=== PATIENT | male | born 1950 | race Caucasian/White ===

== ENCOUNTER 2024-01-19 07:37 | Outpatient (CLI) | payer MEDICARE, OTHER | END 2024-01-19 23:59 | disposition home or self-care (01) | LOC: MRI02 07:37 | PROVIDERS: ATTEND Family Medicine | DX: M47.817 Spondylosis without myelopathy or radiculopathy, lumbosacral region (principal); M51.369 Other intervertebral disc degeneration, lumbar region without mention of lumbar back pain or lower extremity pain; M48.061 Spinal stenosis, lumbar region without neurogenic claudication; M40.56 Lordosis, unspecified, lumbar region; M54.50 Low back pain, unspecified | CPT/HCPCS: 72148 ==